=== PATIENT | female | born 1990 | race Caucasian/White ===

== ENCOUNTER 2021-11-17 10:18 | Emergency (ER) | payer OTHER, SELFPAY ==
[2021-11-17 10:21] VITALS: BP 119/77; PULSE 76; RESP 14; TEMP 36.4; O2SAT 100
--- NOTE | 2021-11-17 12:28 | ED.GENADULT ---
HPI - General Adult General Chief complaint: Skin/Abscess/Foreign Body Stated complaint: right hand abscess Time Seen by Provider: 11/17/21 11:55 Source: patient History of Present Illness HPI narrative: 30-year-old female presents the emergency department for evaluation of a recurrent painful cyst of the palm of her right hand. Patient states this was drained last year but did return. Patient states that the cyst has been worsening over the last few months. Patient has not had follow-up with her primary care physician for this. Patient states this cyst excised by the hand surgeon at [place]. Patient denies any acute changes in the cyst. Patient has no localized erythema. Review of Systems Review of Systems: CONSTITUTIONAL: Denies fever, chills, or sweats. SKIN: Cyst on palmar surface of right hand. MUSCULOSKELETAL: Intermittent pain of right hand NEUROLOGIC: Denies headache, numbness, or weakness. Exam Narrative: APPEARANCE: Well appearing, no pain, no distress, well-nourished. HEAD: normocephalic, atraumatic. EYES: PERRLA/EOMI, conjunctivae clear. MUSCULOSKELETAL: Small cyst at palm of right hand. No localized erythema. No tenderness to palpation. Firm with no surrounding induration or fluctuance NEURO: Neurologically intact including right hand. SKIN: Warm, dry. Normal Color Course Course Emergency Course: The cyst was previously drained by Lamberto clements. I do not feel the patient would have benefited from emergent I&D of the cyst in the emergency department since the capsule also needs to be removed or this will continue to be a recurrent process. Due to the complexity of the surrounding structures I feel that this should be done by hand again. Patient was advised that if she had any worsening symptoms including worsening pain or surrounding erythema that she should present to the emerge department for further evaluation. Patient was encouraged to have close follow-up with her previous physician at [place]. Patient was also provided follow-up for Derm. Vital Signs Vital signs: Vital Signs Temperature 97.5 F L 11/17/21 10:21 Pulse Rate 76 11/17/21 10:21 Respiratory Rate 14 11/17/21 10:21 Blood Pressure 119/77 11/17/21 10:21 Pulse Oximetry 100 11/17/21 10:21 Temperature 97.5 F L 11/17/21 10:21 Pulse Rate 76 11/17/21 10:21 Respiratory Rate 14 11/17/21 10:21 Blood Pressure 119/77 11/17/21 10:21 Pulse Oximetry 100 11/17/21 10:21 Medical Decision Making Vital Signs Vital Signs: Vital Signs Temperature 97.5 F L 11/17/21 10:21 Pulse Rate 76 11/17/21 10:21 Respiratory Rate 14 11/17/21 10:21 Blood Pressure 119/77 11/17/21 10:21 Pulse Oximetry 100 11/17/21 10:21 Temperature 97.5 F L 11/17/21 10:21 Pulse Rate 76 11/17/21 10:21 Respiratory Rate 14 11/17/21 10:21 Blood Pressure 119/77 11/17/21 10:21 Pulse Oximetry 100 11/17/21 10:21 Discharge Plan Discharge Clinical Impression: Cyst Patient Disposition: Home, Self-Care Condition: Stable Instructions: Antibiotic Form, Cyst (ED) Additional Instructions: Have close follow-up with your primary care physician. Attempt to seek follow-up with the physician who previously excised this cyst. Follow-up with dermatology as needed. If you have any worsening symptoms or if you have any questions or concerns then please call or return to the emergency department. Follow-up/Referrals: Bob Eaton M.D. [Physician] - PHYSICIAN,[facility]IND[facility] [Primary Care Provider] -
--- NOTE | 2021-11-17 13:10 | PC.NURSE ---
pt states she has to leave at this time.
== END 2021-11-17 13:11 | disposition home or self-care (01) ==
PROVIDERS: Emergency Provider Emergency Medicine
DX: L72.9 Follicular cyst of the skin and subcutaneous tissue, unspecified (principal)
CPT/HCPCS: 99281